=== PATIENT | female | born 2000 | race American Indian/Alaskan Native ===

== ENCOUNTER 2021-10-28 20:51 | Emergency (ER) | payer SELFPAY ==
[2021-10-28] MEDS ORDERED: ceFAZolin 1 GM VIAL IM ONE (21:05)
[2021-10-28] MEDS ORDERED: TETANUS,DIPHTHERIA TOXOID ADULT 0.5 ML INJ IM ONE (21:05)
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
[2021-10-28] MEDS ORDERED: WATER FOR INJ Sterile (PF) 10 ML ONE (21:51)
[2021-10-28] MEDS ORDERED: WATER FOR INJ Sterile (PF) 10 ML IM SCH (22:00)
[2021-10-28] MEDS ORDERED: HYDROcodone/ACETAMINOPHEN 5-325 MG TAB PO ONE (22:43)
[2021-10-28] MEDS ORDERED: LIDOCAINE (1%) 10 MG/1 ML VIAL 20 ML MDV INFILTRATI ONE (22:43)
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
[2021-10-29 00:17] VITALS: BP 108/72
== END 2021-10-29 00:17 | disposition home or self-care (01) ==
LOC: ED 20:51
DX: S92.912B Unspecified fracture of left toe(s), initial encounter for open fracture (principal); W34.09XA Accidental discharge from other specified firearms, initial encounter; Y93.89 Activity, other specified; Y92.89 Other specified places as the place of occurrence of the external cause; Y99.8 Other external cause status
CPT/HCPCS: 12001; 73630; 90471; 90714; 96372; 99283; J0690